=== PATIENT | female | born 1970 | race Caucasian/White ===

== ENCOUNTER 2019-07-04 03:17 | Emergency (ER) | payer MEDICAID, SELFPAY | END 2019-07-04 04:11 | disposition home or self-care (01) | LOC: ERS 03:17 | DX: B02.9 Zoster without complications (principal); F17.210 Nicotine dependence, cigarettes, uncomplicated | CPT/HCPCS: 99282 ==

== ENCOUNTER 2019-09-17 17:33 | Emergency (ER) | payer SELFPAY ==
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
[2019-09-17] MEDS ORDERED: Ketorolac Tromethamine 30 MG/ML VIAL ONE (18:19)
[2019-09-17] MEDS ORDERED: Methocarbamol 500 MG TAB PO SCH (18:30)
== END 2019-09-17 19:21 | disposition home or self-care (01) ==
LOC: ERS 17:33
DX: S40.011A Contusion of right shoulder, initial encounter (principal); M54.2 Cervicalgia; F17.210 Nicotine dependence, cigarettes, uncomplicated; V43.92XA Unspecified car occupant injured in collision with other type car in traffic accident, initial encounter
CPT/HCPCS: 96372; J1885

== ENCOUNTER 2021-07-08 21:40 | Inpatient (IN) | payer MEDICAID, OTHER ==
[2021-07-08] MEDS ORDERED: Acetaminophen 500 MG TAB ONE (22:18)
[2021-07-08] MEDS ORDERED: Dexamethasone 10 MG/ML VIAL ONE (22:18)
[2021-07-08] MEDS ORDERED: cefTRIAXone\\ROCEPHIN 2 GM VIAL ONE (22:44)
[2021-07-08] MEDS ORDERED: Azithromycin 500 MG VIAL ONE ×2 (22:44→23:45)
[2021-07-08 22:53] LABS: #Lymphocytes 1.2 thou/uL (1.20-3.40); #Monocytes 0.2 thou/uL (0.11-0.59); #Neutrophils 5.2 thou/uL (1.40-6.50); %Basophils 0.1 % (0.0-1.0); %Eosinophils 0.7 % (0.0-10.0); %Lymphocytes 18.4 % (21.0-51.0); %Monocytes 3.3 % (0.0-10.0); %Neutrophils 77.5 % (42.0-75.0); Hemoglobin 14.1 g/dL (12.0-16.0); Mean Corpuscular HGB CONC 33.6 g/dL (32.0-36.0); Mean Corpuscular Hemoglobin 32.3 pg (27.0-31.0); Mean Corpuscular Volume 96.2 fL (78.0-98.0); Mean Platelet Volume 9.2 fL (7.4-10.4); Platelet Count 161 thou/uL (130-400); Red Blood Cell (RBC) Count 4.37 mill/uL (4.20-5.40); White Blood Cell (WBC) Count 6.7 thou/uL (4.8-10.8)
[2021-07-08 23:12] LABS: ALT (SGPT) 132 U/L (8-55); AST (SGOT) 77 U/L (5-34); Alkaline Phosphatase 145 U/L (40-110); Anion Gap 10 mmol/L (10-20); BUN (Urea Nitrogen) 10 mg/dL (7.0-18.7); Bilirubin, Total 0.3 mg/dL (0.2-1.2); Calc. Creatinine Clearance 0 mL/min (70-130); Calcium 8.3 mg/dL (7.8-10.44); Carbon Dioxide 29 mmol/L (22-29); Chloride 101 mmol/L (98-107); Globulin 3.7 g/dL (2.4-3.5); Glucose 170 mg/dL (70-105); Potassium 3.7 mmol/L (3.5-5.1); Protein, Total 6.7 g/dL (6.0-8.3); Sodium 136 mmol/L (136-145)
[2021-07-08 23:45] LABS: SARS-CoV-2 NAA Rapid Test DETECTED (NotDetected)
[2021-07-09] MEDS ORDERED: Albuterol 200 PUFF (6.7GM INHALER) ONE (00:09)
[2021-07-09 00:44] LABS: Bilirubin Negative (Negative); Blood, Urine Negative (Negative); Clarity Clear (Clear); Glucose, Urine (Dipstick) Normal (Negative); Ketone, Urine Negative (Negative); Leukocyte Negative Leu/uL (Negative); Nitrite Negative (Negative); Protein, Urine (Dipstick) Negative (Neg-Trace); Specific Gravity, Urine 1.026 (1.002-1.036); Urobilinogen Normal mg/dL (Less than 2)
[2021-07-09 01:53] LABS: Lactic Acid 0.9 mmol/L (0.5-2.2)
[2021-07-09] MEDS ORDERED: Ondansetron PF 4 MG/2 ML Vial IVP PRN (04:07)
[2021-07-09] MEDS ORDERED: Acetaminophen 325 MG TAB PO PRN (04:07)
[2021-07-09] MEDS ORDERED: Dextrose 50% Abboject 50 ML SYRINGE SLOW IVP PRN (04:11)
[2021-07-09] MEDS ORDERED: Dextrose 5% in Water 1,000 ML IV PRN (04:11)
[2021-07-09] MEDS ORDERED: Pharmacy to Dose REMDESIVIR IVPB PRN (04:11)
[2021-07-09 05:12] VITALS: BMI 44.9
[2021-07-09] MEDS: HumaLOG 300 UNITS/3 ML VIAL SC PRN ×3 (06:11→17:41)
[2021-07-09] MEDS: Zinc Sulfate 220 MG CAP PO SCH (08:19)
[2021-07-09] MEDS: Famotidine 20 MG TAB PO SCH ×2 (08:19→20:52)
[2021-07-09] MEDS: Dexamethasone 4 mg/ml Vial SLOW IVP SCH (08:19)
[2021-07-09] MEDS: Cholecalciferol 1,000 UNITS (25 MCG) TAB PO SCH (08:20)
[2021-07-09] MEDS: Enoxaparin Sodium 40 MG/0.4 ML SYRINGE SC SCH ×2 (08:20→20:51)
[2021-07-09] MEDS: Ascorbic Acid 500 mg Chewable Tablet PO SCH (08:20)
[2021-07-09] MEDS: Benzonatate 100 MG CAP PO PRN ×2 (15:21→23:15)
[2021-07-09] MEDS: Lantus 1000 UNITS/10 ML VIAL SC SCH (20:50)
[2021-07-09] MEDS: guaiFENesin/Codeine 200 mg/20 mg 10 ml Cup PO PRN (20:52)
[2021-07-09] MEDS ORDERED: REMDESIVIR 200 MG in Sodium Chloride 0.9% 250 ML 210 ML IV SCH (21:00)
[2021-07-10] MEDS: HumaLOG 300 UNITS/3 ML VIAL SC PRN ×3 (05:31→21:09)
[2021-07-10 06:27] LABS: Hemoglobin 13.3 g/dL (12.0-16.0); Mean Corpuscular HGB CONC 31.5 g/dL (32.0-36.0); Mean Corpuscular Hemoglobin 30.4 pg (27.0-31.0); Mean Corpuscular Volume 96.6 fL (78.0-98.0); Mean Platelet Volume 9.5 fL (7.4-10.4); Platelet Count 166 thou/uL (130-400); Red Blood Cell (RBC) Count 4.37 mill/uL (4.20-5.40)
[2021-07-10 06:31] LABS: Hemoglobin A1c 9.3 % (4.0-6.0)
[2021-07-10] MEDS: guaiFENesin/Codeine 200 mg/20 mg 10 ml Cup PO PRN ×3 (06:36→21:57)
[2021-07-10 06:49] LABS: ALT (SGPT) 89 U/L (8-55); AST (SGOT) 37 U/L (5-34); Albumin 2.9 g/dL (3.5-5.0); Alkaline Phosphatase 139 U/L (40-110); Anion Gap 9 mmol/L (10-20); BUN (Urea Nitrogen) 10 mg/dL (7.0-18.7); Bilirubin, Total 0.3 mg/dL (0.2-1.2); Calc. Creatinine Clearance 175 mL/min (70-130); Calcium 8.4 mg/dL (7.8-10.44); Carbon Dioxide 27 mmol/L (22-29); Chloride 104 mmol/L (98-107); Globulin 3.7 g/dL (2.4-3.5); Glucose 277 mg/dL (70-105); Potassium 3.8 mmol/L (3.5-5.1); Protein, Total 6.6 g/dL (6.0-8.3); Sodium 136 mmol/L (136-145)
[2021-07-10 08:10] LABS: Band 13 % (5-11); Lymphocytes 7 % (21-51); MDiff Complete? YES; Monocytes 1 % (0-10); Neutrophil 79 % (42-75); Platelet Clumps SLIGHT; Platelet Morphology Comment Appears Adequate
[2021-07-10] MEDS ORDERED: REMDESIVIR 100 MG in Sodium Chloride 0.9% 250 ML 230 ML IV SCH (09:00)
[2021-07-10] MEDS: Zinc Sulfate 220 MG CAP PO SCH (10:14)
[2021-07-10] MEDS: Ascorbic Acid 500 mg Chewable Tablet PO SCH (10:14)
[2021-07-10] MEDS: Famotidine 20 MG TAB PO SCH ×2 (10:14→20:38)
[2021-07-10] MEDS: Dexamethasone 4 mg/ml Vial SLOW IVP SCH (10:15)
[2021-07-10] MEDS: Benzonatate 100 MG CAP PO PRN (10:16)
[2021-07-10] MEDS: Cholecalciferol 1,000 UNITS (25 MCG) TAB PO SCH (10:16)
[2021-07-10] MEDS: Enoxaparin Sodium 40 MG/0.4 ML SYRINGE SC SCH ×2 (10:17→20:38)
[2021-07-10] MEDS: Albuterol 200 PUFF (6.7GM INHALER) INH SCH ×3 (16:00→21:58)
[2021-07-10] MEDS: guaiFENesin ER 600 MG TAB PO SCH (20:38)
[2021-07-10] MEDS: Lantus 1000 UNITS/10 ML VIAL SC SCH (20:39)
[2021-07-10] MEDS: REMDESIVIR 100 MG in Sodium Chloride 0.9% 250 ML 230 ML IV SCH (20:40)
[2021-07-11] MEDS: Albuterol 200 PUFF (6.7GM INHALER) INH SCH ×6 (02:55→22:30)
[2021-07-11] MEDS: HumaLOG 300 UNITS/3 ML VIAL SC PRN ×3 (05:17→20:54)
[2021-07-11 06:15] LABS: #Lymphocytes 1.2 thou/uL (1.20-3.40); #Monocytes 0.6 thou/uL (0.11-0.59); #Neutrophils 10.8 thou/uL (1.40-6.50); %Basophils 0.1 % (0.0-1.0); %Eosinophils 0.1 % (0.0-10.0); %Lymphocytes 9.6 % (21.0-51.0); %Monocytes 4.8 % (0.0-10.0); %Neutrophils 85.4 % (42.0-75.0); Hemoglobin 13.2 g/dL (12.0-16.0); Mean Corpuscular HGB CONC 32.4 g/dL (32.0-36.0); Mean Corpuscular Hemoglobin 31.1 pg (27.0-31.0); Mean Corpuscular Volume 95.9 fL (78.0-98.0); Mean Platelet Volume 10.3 fL (7.4-10.4); Platelet Count 187 thou/uL (130-400); RBC Distribution Width 13.1 % (11.5-14.5); Red Blood Cell (RBC) Count 4.23 mill/uL (4.20-5.40); White Blood Cell (WBC) Count 12.6 thou/uL (4.8-10.8)
[2021-07-11 06:31] LABS: ALT (SGPT) 71 U/L (8-55); AST (SGOT) 27 U/L (5-34); Albumin 2.8 g/dL (3.5-5.0); Alkaline Phosphatase 137 U/L (40-110); Anion Gap 11 mmol/L (10-20); BUN (Urea Nitrogen) 16 mg/dL (7.0-18.7); Bilirubin, Total 0.3 mg/dL (0.2-1.2); Calc. Creatinine Clearance 178 mL/min (70-130); Calcium 8.3 mg/dL (7.8-10.44); Carbon Dioxide 26 mmol/L (22-29); Chloride 104 mmol/L (98-107); Globulin 3.7 g/dL (2.4-3.5); Glucose 196 mg/dL (70-105); Protein, Total 6.5 g/dL (6.0-8.3); Sodium 137 mmol/L (136-145)
[2021-07-11] MEDS: guaiFENesin ER 600 MG TAB PO SCH ×2 (09:46→20:49)
[2021-07-11] MEDS: Zinc Sulfate 220 MG CAP PO SCH (09:46)
[2021-07-11] MEDS: Cholecalciferol 1,000 UNITS (25 MCG) TAB PO SCH (09:46)
[2021-07-11] MEDS: Ascorbic Acid 500 mg Chewable Tablet PO SCH (09:46)
[2021-07-11] MEDS: Famotidine 20 MG TAB PO SCH ×2 (09:47→20:49)
[2021-07-11] MEDS: Dexamethasone 4 mg/ml Vial SLOW IVP SCH (09:47)
[2021-07-11] MEDS: Enoxaparin Sodium 40 MG/0.4 ML SYRINGE SC SCH ×2 (09:49→20:49)
[2021-07-11] MEDS: Benzonatate 100 MG CAP PO PRN (18:46)
[2021-07-11] MEDS: REMDESIVIR 100 MG in Sodium Chloride 0.9% 250 ML 230 ML IV SCH (20:49)
[2021-07-11] MEDS: guaiFENesin/Codeine 200 mg/20 mg 10 ml Cup PO PRN (20:49)
[2021-07-11] MEDS: Lantus 1000 UNITS/10 ML VIAL SC SCH (20:50)
[2021-07-12] MEDS: Albuterol 200 PUFF (6.7GM INHALER) INH SCH ×6 (02:35→22:00)
[2021-07-12] MEDS: Enoxaparin Sodium 40 MG/0.4 ML SYRINGE SC SCH ×2 (08:30→21:59)
[2021-07-12] MEDS: Dexamethasone 4 mg/ml Vial SLOW IVP SCH (08:31)
[2021-07-12] MEDS: Ascorbic Acid 500 mg Chewable Tablet PO SCH (08:31)
[2021-07-12] MEDS: Cholecalciferol 1,000 UNITS (25 MCG) TAB PO SCH (08:31)
[2021-07-12] MEDS: guaiFENesin ER 600 MG TAB PO SCH ×2 (08:31→21:59)
[2021-07-12] MEDS: Famotidine 20 MG TAB PO SCH ×2 (08:31→21:59)
[2021-07-12] MEDS: Zinc Sulfate 220 MG CAP PO SCH (08:31)
[2021-07-12] MEDS: HumaLOG 300 UNITS/3 ML VIAL SC PRN ×2 (11:03→16:15)
[2021-07-12 16:02] LABS: Hemoglobin 14.4 g/dL (12.0-16.0); Mean Corpuscular HGB CONC 32.2 g/dL (32.0-36.0); Mean Corpuscular Hemoglobin 30.8 pg (27.0-31.0); Mean Corpuscular Volume 95.4 fL (78.0-98.0); Platelet Count 222 thou/uL (130-400); Red Blood Cell (RBC) Count 4.67 mill/uL (4.20-5.40)
[2021-07-12 16:14] LABS: ALT (SGPT) 84 U/L (8-55); AST (SGOT) 54 U/L (5-34); Albumin 3.1 g/dL (3.5-5.0); Alkaline Phosphatase 161 U/L (40-110); Anion Gap 12 mmol/L (10-20); BUN (Urea Nitrogen) 15 mg/dL (7.0-18.7); Bilirubin, Total 0.5 mg/dL (0.2-1.2); Calc. Creatinine Clearance 147 mL/min (70-130); Calcium 8.4 mg/dL (7.8-10.44); Carbon Dioxide 27 mmol/L (22-29); Chloride 100 mmol/L (98-107); Globulin 3.7 g/dL (2.4-3.5); Glucose 336 mg/dL (70-105); Protein, Total 6.8 g/dL (6.0-8.3); Sodium 135 mmol/L (136-145)
[2021-07-12 16:49] LABS: Lymphocytes 11 % (21-51); MDiff Complete? YES; Monocytes 5 % (0-10); Neutrophil 84 % (42-75); Platelet Morphology Comment Appears Adequate; RBC Morphology Normal
[2021-07-12] MEDS: Lantus 1000 UNITS/10 ML VIAL SC SCH (21:59)
[2021-07-12] MEDS: REMDESIVIR 100 MG in Sodium Chloride 0.9% 250 ML 230 ML IV SCH (21:59)
[2021-07-13] MEDS: Albuterol 200 PUFF (6.7GM INHALER) INH SCH ×6 (02:54→21:30)
[2021-07-13] MEDS: HumaLOG 300 UNITS/3 ML VIAL SC PRN ×4 (06:11→21:13)
[2021-07-13] MEDS: Famotidine 20 MG TAB PO SCH ×2 (07:56→21:12)
[2021-07-13] MEDS: Zinc Sulfate 220 MG CAP PO SCH (07:56)
[2021-07-13] MEDS: Dexamethasone 4 mg/ml Vial SLOW IVP SCH (07:56)
[2021-07-13] MEDS: Enoxaparin Sodium 40 MG/0.4 ML SYRINGE SC SCH ×2 (07:56→21:12)
[2021-07-13] MEDS: guaiFENesin ER 600 MG TAB PO SCH ×2 (07:56→21:12)
[2021-07-13] MEDS: Ascorbic Acid 500 mg Chewable Tablet PO SCH (07:56)
[2021-07-13] MEDS: Cholecalciferol 1,000 UNITS (25 MCG) TAB PO SCH (07:57)
[2021-07-13] MEDS ORDERED: REMDESIVIR 100 MG in Sodium Chloride 0.9% 250 ML 230 ML IV SCH (10:00)
[2021-07-13] MEDS: Benzonatate 100 MG CAP PO PRN (10:24)
[2021-07-13] MEDS ORDERED: Melatonin 3 MG TAB PO PRN (20:54)
[2021-07-13] MEDS: Lantus 1000 UNITS/10 ML VIAL SC SCH (21:13)
[2021-07-14] MEDS: Albuterol 200 PUFF (6.7GM INHALER) INH SCH ×3 (03:26→09:25)
[2021-07-14] MEDS ORDERED: REMDESIVIR 100 MG in Sodium Chloride 0.9% 250 ML 230 ML IV SCH (09:00)
[2021-07-14] MEDS: Ascorbic Acid 500 mg Chewable Tablet PO SCH (09:24)
[2021-07-14] MEDS: Enoxaparin Sodium 40 MG/0.4 ML SYRINGE SC SCH (09:24)
[2021-07-14] MEDS: Dexamethasone 4 mg/ml Vial SLOW IVP SCH (09:24)
[2021-07-14] MEDS: Famotidine 20 MG TAB PO SCH (09:24)
[2021-07-14] MEDS: guaiFENesin ER 600 MG TAB PO SCH (09:24)
[2021-07-14] MEDS: Zinc Sulfate 220 MG CAP PO SCH (09:25)
[2021-07-14] MEDS: Cholecalciferol 1,000 UNITS (25 MCG) TAB PO SCH (09:25)
[2021-07-14 10:40] VITALS: BP 114/83; TEMP 97.5
== END 2021-07-14 15:06 | disposition home or self-care (01) | DRG 177 ==
LOC: ERS 21:40 → T4-B 07-09 01:07
PROVIDERS: ADMIT Internal Medicine; ATTEND Family Medicine
PROC: 8E0ZXY6 Isolation (ICD-10-PCS; principal; 2021-07-09)
PROC: XW033E5 Introduction of Remdesivir Anti-infective into Peripheral Vein, Percutaneous Approach, New Technology Group 5 (ICD-10-PCS; 2021-07-09)
DX: U07.1 COVID-19 (principal); J12.82 Pneumonia due to coronavirus disease 2019; J96.01 Acute respiratory failure with hypoxia; E87.2 Acidosis; J44.0 Chronic obstructive pulmonary disease with (acute) lower respiratory infection; G47.33 Obstructive sleep apnea (adult) (pediatric); E11.65 Type 2 diabetes mellitus with hyperglycemia; T38.0X5A Adverse effect of glucocorticoids and synthetic analogues, initial encounter; F17.210 Nicotine dependence, cigarettes, uncomplicated; J45.909 Unspecified asthma, uncomplicated; Z99.89 Dependence on other enabling machines and devices; Z79.899 Other long term (current) drug therapy
CPT/HCPCS: 0240U; 36415; 36416; 71045; 71275; 80053; 81003; 82728; 83036; 83605; 84484; 85025; 85379; 86140; 87040; 87086; 93005; 96365; 96367; 96375; J0456; J0696; J1100; J1650; J1815; J2405; J7050

== ENCOUNTER 2021-07-18 18:40 | Emergency (ER) | payer OTHER ==
[2021-07-18] MEDS ORDERED: Acetaminophen 500 MG TAB ONE (19:34)
[2021-07-18] MEDS ORDERED: Ketorolac Tromethamine 30 MG/ML VIAL ONE (19:34)
== END 2021-07-18 21:30 | disposition home or self-care (01) ==
LOC: ERS 18:40
DX: U07.1 COVID-19 (principal); M79.10 Myalgia, unspecified site; E11.9 Type 2 diabetes mellitus without complications; G47.30 Sleep apnea, unspecified; F17.210 Nicotine dependence, cigarettes, uncomplicated
CPT/HCPCS: 36416; 96372; 99283; J1885